=== PATIENT | male | born 1965 | race Caucasian/White ===

== ENCOUNTER 2016-08-08 11:32 | Outpatient (CLI) | payer BC | END 2016-08-08 11:33 | disposition home or self-care (01) | DX: Z13.220 Encounter for screening for lipoid disorders (principal); Z13.1 Encounter for screening for diabetes mellitus ==

== ENCOUNTER 2019-01-23 08:38 | Day surgery (SDC) | payer BC, OTHER ==
[2019-01-23] MEDS ORDERED: fentaNYL 250 MCG/5 ML VIAL IVP ONE (08:39)
[2019-01-23] MEDS ORDERED: MIDAZOLAM 2 MG/2 ML VIAL IVP ONE (08:39)
[2019-01-23] MEDS ORDERED: LACTATED RINGERS 1,000 ML IV ONE (08:45)
[2019-01-23 11:42] VITALS: BP 104/71
== END 2019-01-23 08:39 | disposition home or self-care (01) ==
LOC: SDS 08:38
PROVIDERS: ATTEND Surgery
PROC: 0DJD8ZZ Inspection of Lower Intestinal Tract, Via Natural or Artificial Opening Endoscopic (ICD-10-PCS; principal; 2019-01-23 10:15)
DX: Z12.11 Encounter for screening for malignant neoplasm of colon (principal); K64.8 Other hemorrhoids; Z80.0 Family history of malignant neoplasm of digestive organs
CPT/HCPCS: 45378; J7120

== ENCOUNTER 2023-02-15 08:00 | Outpatient (CLI) | payer OTHER ==
--- NOTE | 2023-02-15 14:50 | XRAY Report ---
PROCEDURE: Knee 3 View RT INDICATIONS: RIGHT KNEE PAIN TECHNIQUE: 3 views of the right knee(s) were acquired. COMPARISON: None. FINDINGS: Bones: No fractures or dislocations. No suspicious bony lesions. Soft tissues: Small knee joint effusion. No suspicious soft tissue calcifications or masses. Chondro calcinosis. IMPRESSION: No acute bony abnormality. Small joint effusion. Chondrocalcinosis. Reviewed by: Joe Vicente MD on 02/15/2023 2:49 PM PDT Approved by: Joe Vicente MD on 02/15/2023 2:49 PM PDT Station ID: [id number]
== END 2023-02-15 23:59 | disposition home or self-care (01) ==
LOC: DI.S 08:00
PROVIDERS: ATTEND Physician Assistant
DX: M11.261 Other chondrocalcinosis, right knee (principal); M25.461 Effusion, right knee